=== PATIENT | female | born 1985 | race Caucasian/White ===

== ENCOUNTER 2017-07-09 10:50 | Inpatient (IN) | payer OTHER ==
[~2017-07-09] VITALS: Ht 152.4 cm; Wt 91.9 kg
[2017-07-09] MEDS ORDERED: SODIUM CHLORIDE 0.9% 1000ML 1,000 ML IV STA (11:09)
[2017-07-09] MEDS ORDERED: MoRPHine SULFATE 10 MG/ML CARP/VIAL IV STA (11:09)
[2017-07-09 11:32] LABS: BASO % 0.3 %; BASO ABS # 0.03 K/uL (0-0.2); EOS % 1.7 %; EOS ABS # 0.17 K/uL (0-0.5); HEMATOCRIT 40.9 % (37-47); HEMOGLOBIN 14.4 g/dL (12.0-16.0); IG# 0.05 K/uL (0.00-0.02); LYMPH % 18.3 %; LYMPH ABS # 1.86 K/uL (1.2-3.4); MEAN CELL VOLUME 88.5 fL (80-100); MEAN CORPUSCULAR HEMOGLOBIN 31.2 pg (25-34); MEAN CORPUSCULAR HGB CONC 35.2 g/dl (32-36); MEAN PLATELET VOLUME 9.6 fL (7.4-10.4); MONO % 6.4 %; MONO ABS # 0.65 K/uL (0.11-0.59); NEUT % 72.8 %; NEUT ABS # 7.41 K/uL (1.4-6.5); PLATELET COUNT 384 K/uL (130-400); RED CELL DISTRIBUTION WIDTH CV 13.6 % (11.5-14.5); WHITE BLOOD COUNT 10.17 K/uL (4.8-10.8)
[2017-07-09 11:51] LABS: ALBUMIN 3.9 gm/dl (3.4-5.0); CALCIUM 9.7 mg/dl (8.5-10.1); CREATININE 0.84 mg/dl (0.60-1.20); POTASSIUM 3.8 mmol/L (3.5-5.1)
[2017-07-09 11:54] LABS: TOTAL PROTEIN 9.2 gm/dl (6.4-8.2)
--- NOTE | 2017-07-09 12:42 | DIAGNOSTIC IMAGING REPORT ---
ULTRASOUND RIGHT UPPER QUADRANT ABDOMEN CLINICAL HISTORY: Right upper quadrant abdominal pain. COMPARISON STUDY: No priors. TECHNIQUE: Real-time, grayscale, and color flow sonography of the right upper quadrant of the abdomen was performed. Images are reviewed in the transverse and longitudinal planes. FINDINGS: Liver: The liver is normal in size and echotexture. There is no intrahepatic biliary ductal dilatation. The main portal vein is patent. Gallbladder: The gallbladder is contracted. Shadowing gallstones measure up to 1.1 cm. There is no gallbladder wall thickening or pericholecystic fluid. A sonographic Persaud's sign is reportedly absent. The common bile duct is dilated measuring up to 1.1 cm in diameter. A 9 mm shadowing calculus is identified within the common bile duct. Pancreas: Visualized portions of the pancreatic head and body are normal in appearance. The splenic vein is patent. Right kidney: Survey images of the right kidney demonstrate normal size and echotexture. There is no hydronephrosis. A 2.5 cm cyst is noted in the right upper pole. Ascites: None. IMPRESSION: 1. The gallbladder is contracted and contains shadowing gallstones. There is no sonographic evidence of acute cholecystitis. 2. There is dilatation of the common bile duct with evidence of choledocholithiasis. Follow-up with gastroenterology is recommended. 3. There is no intrahepatic biliary ductal dilatation identified. Electronically signed by: Manjit García M.D. 07/09/2017 12:41 PM Dictated Date/Time: 07/09/2017 12:37 PM
--- NOTE | 2017-07-09 13:17 | Gastrointestinal Consultation ---
Gastrointestinal Consultation Date of Consultation: Jul 09, 2017 Attending Physician: Sacha Consulting Physician: Matthew Reason for Consultation: elevated LFTs, CBD stone History of Present Illness Patient is a 31 year old female history of gallstones and RUQ abd pain x 1 month who presented to the ED for abdominal pain, nausea, vomiting. Pt was seen and evaluated, chart reviewed. Notes had acute on chronic RUQ pain last evening into this AM with nausea, vomiting. Called her surgeon who recommended ED. She was to have her GB out as an OP Wednesday. Recent labs were suggestive of passing gallstones. Currently, has RUQ abd pain, worse w/ palpation. No rebound or guarding. Nausea and vomiting. No coffee ground emesis, hematemesis. No black/ bloody stools. Had breakfast at 0800, cup of coffee, peanut butter toast and banana. Has been NPO since 0800. No fever, chills, CP, SOB TB 2.7 --> 1 --> 2.9 AST 78 --> 242 ALT 209 --> 354 ALKP 226 --> 427 RUQ US 07/09/17: The liver is normal in size and echotexture. There is no intrahepaticbiliary ductal dilatation. The main portal vein is patent. The gallbladder is contracted. Shadowing gallstones measure up to 1.1 cm. There is no gallbladder wall thickening or pericholecystic fluid. A sonographic Persaud's sign is reportedly absent. The common bile duct is dilated measuring up to 1.1 cm in diameter. A 9 mm shadowing calculus is identified within the common bile duct. RUQ US 07/05/17: CBD 11, Borderline hepatomegaly with questionable steatosis. Abnormal gallbladder, as above, including gallstones Past Medical/Surgical History abd pain, nausea, vomiting, RUQ pain, pruritus Past Medical History: obesity, gallstones Past Surgical History: none Social History Smoking Status: Never Smoker Allergies Coded Allergies: Amoxicillin (Verified Allergy, Unknown, unknown as child, 07/09/17) Review of Systems Constitutional: No fever, No chills, No weight loss, No fatigue Respiratory: No cough, No shortness of breath Cardiac: No chest pain, No edema Abdomen: + pain, + nausea, + vomiting, No diarrhea, No constipation, No GI bleeding Physical Exam Date Time Temp Pulse Resp B/P (MAP) Pulse Ox O2 Delivery O2 Flow Rate FiO2 07/09/17 12:55 98 18 165/110 98 Room Air 07/09/17 11:46 97 Room Air 07/09/17 11:42 102 20 152/112 96 Room Air 07/09/17 10:57 37.0 97 20 159/109 98 Room Air General Appearance: no apparent distress Eyes: PERRL ENT: hearing grossly normal Neck: supple, trachea midline Respiratory/Chest: lungs clear, normal breath sounds, no respiratory distress, no accessory muscle use Cardiovascular: regular rate, rhythm, no edema, no gallop, no JVD Abdomen: normal bowel sounds, soft, no organomegaly, no pulsatile mass, + tenderness (RUQ tenderness) Neurologic/Psych: alert, normal mood/affect, oriented x 3 Skin: warm/dry, no rash, + jaundice Laboratory Results Last 24 Hours Test 07/09/17 11:20 07/09/17 11:38 White Blood Count 10.17 K/uL Red Blood Count 4.62 M/uL Hemoglobin 14.4 g/dL Hematocrit 40.9 % Mean Corpuscular Volume 88.5 fL Mean Corpuscular Hemoglobin 31.2 pg Mean Corpuscular Hemoglobin Concent 35.2 g/dl Platelet Count 384 K/uL Mean Platelet Volume 9.6 fL Neutrophils (%) (Auto) 72.8 % Lymphocytes (%) (Auto) 18.3 % Monocytes (%) (Auto) 6.4 % Eosinophils (%) (Auto) 1.7 % Basophils (%) (Auto) 0.3 % Neutrophils # (Auto) 7.41 K/uL Lymphocytes # (Auto) 1.86 K/uL Monocytes # (Auto) 0.65 K/uL Eosinophils # (Auto) 0.17 K/uL Basophils # (Auto) 0.03 K/uL RDW Standard Deviation 44.0 fL RDW Coefficient of Variation 13.6 % Immature Granulocyte % (Auto) 0.5 % Immature Granulocyte # (Auto) 0.05 K/uL Sodium Level 136 mmol/L Potassium Level 3.8 mmol/L Chloride Level 103 mmol/L Carbon Dioxide Level 25 mmol/L Anion Gap 7.0 mmol/L Blood Urea Nitrogen 14 mg/dl Creatinine 0.84 mg/dl Est Creatinine Clear Calc Drug Dose 99.9 ml/min Estimated GFR () 108.9 Estimated GFR (Non- 93.9 BUN/Creatinine Ratio 16.9 Random Glucose 132 mg/dl Calcium Level 9.7 mg/dl Total Bilirubin 2.9 mg/dl Direct Bilirubin 2.2 mg/dl Aspartate Amino Transf (AST/SGOT) 242 U/L Alanine Aminotransferase (ALT/SGPT) 354 U/L Alkaline Phosphatase 427 U/L Total Protein 9.2 gm/dl Albumin 3.9 gm/dl Lipase 317 U/L Urine Color DK YELLOW Urine Appearance TURBID Urine pH 6.5 Urine Specific [place] 1.028 Urine Protein 1+ Urine Glucose (UA) NEG Urine Ketones TRACE Urine Occult Blood NEG Urine Nitrite POS Urine Bilirubin 2+ Urine Urobilinogen POS Urine Leukocyte Esterase LARGE Urine WBC (Auto) /hpf Urine RBC (Auto) /hpf Urine Hyaline Casts (Auto) /lpf Urine Epithelial Cells (Auto) /lpf Urine Bacteria (Auto) Urine RBC 0-4 /hpf Urine WBC 10-30 /hpf Urine Epithelial Cells >30 /lpf Urine Crystals Urine Calcium Oxalate Crystals PRESENT Urine Bacteria 1+ Urine Hyaline Casts 1-5 /lpf Urine Trichomonas PRESENT Urine Test NEG Impression Patient is a 31 year old female w/ gallstones plan for cholecystectomy in three days who presented with worsening RUQ pain, US w/ choledocholithiasis CBD 11, LFTs obstructive c/w choledocholithiasis. She is afebrile with stable vital signs without evidence of leukocytosis. Plan Strict NPO IV ABX for cholangitis prophylaxis Antiemetics PRN Analgesia PRN ERCP timing to be determined Cholecystectomy per general surgery GI to follow. Please call with any acute changes, questions or concerns. I performed a history and physical examination of the patient. I have discussed the patient's case, impression and plan with CUONG Lovell. Her note reflects my findings and plan. Presentation c/w choledocholithiasis. No signs of ascending cholangitis. Will need pre op ERCP. Will discuss timing with surgery. Malik Castro MD
[2017-07-09] MEDS ORDERED: MoRPHine SULFATE 4 MG/ML 1 ML CARP\\VIAL IV PRN (13:45)
[2017-07-09] MEDS ORDERED: ONDANSETRON INJ 2 MG/ML 2 ML VIAL IV PRN ×2 (13:45)
--- NOTE | 2017-07-09 14:07 | History and Physical ---
History & Physical Date & Time of Service: Jul 09, 2017 at 13:43 Chief Complaint: Gallbladder Attack,Gallstones,Pain,Vomiting Primary Care Physician: Ria Mehta History of Present Illness Source: patient, clinic records, hospital records 31-year-old female presents emergency room with worsening right upper quadrant pain that was associated with vomiting, chills, and nausea in the last 24 hours. She reports a history of 2 weeks of abdominal pain that was in the right upper quadrant area. She was worked up as outpatient and ultimately seen by a general surgeon for this and had a planned cholecystectomy for this coming Wednesday (3 days from now). Yesterday she reports eating potato chips and subsequently having pain around lunchtime which resolved spontaneously. She then had spaghetti last night for dinner and developed the same right upper quadrant pain with vomiting within a half an hour. She was able to go to sleep but then woke up went to work, had a peanut butter sandwich with ice coffee and threw up within 30 minutes. This was when she came to the ER. She reports after throwing up she was able to drink water and keep that down. She reports a history of jaundice but no jaundice in the last 24 hours. She otherwise denies any urinary tract symptoms including no dysuria or urgency. She denies any fevers, chest pain, shortness of breath, diarrhea, change in bowel movements or blood per rectum. She denies any cough or recent cold symptoms. She describes the pain is across the top of her abdomen with majority of the pain in the right upper quadrant area. This pain provokes her to have some trouble breathing when it is at its worse in addition to some chest tightness which resolves with resolution of the pain. Past Medical/Surgical History Medical Problems: (1) Gestational diabetes Status: Resolved Family History FH: HTN (hypertension) MOTHER Type 2 diabetes mellitus MOTHER Social History Smoking Status: Never Smoker Smokeless Tobacco Use: No Alcohol Use: socially Drug Use: none Housing status: lives with family Occupational Status: employed Immunizations History of Influenza Vaccine: Unknown History of Tetanus Vaccine?: Yes Tetanus Immunization Date: Dec 18, 2005 History of Pneumococcal: No History of Hepatitis B Vaccine: No Allergies Coded Allergies: Amoxicillin (Verified Allergy, Unknown, unknown as child, 07/09/17) Review of Systems At least 10 systems were reviewed and negative except as indicated in HPI. Physical Exam Vital Signs Date Time Temp Pulse Resp B/P (MAP) Pulse Ox O2 Delivery O2 Flow Rate FiO2 07/09/17 12:55 98 18 165/110 98 Room Air 07/09/17 11:46 97 Room Air 07/09/17 11:42 102 20 152/112 96 Room Air 07/09/17 10:57 37.0 97 20 159/109 98 Room Air General Appearance: no apparent distress, + obese Head: normocephalic, atraumatic Eyes: normal inspection, PERRL, sclerae normal ENT: hearing grossly normal, pharynx normal Neck: supple, no adenopathy, trachea midline Respiratory/Chest: lungs clear, normal breath sounds, no respiratory distress, no accessory muscle use Cardiovascular: regular rate, rhythm, no edema, no gallop, no JVD, no murmur, normal peripheral pulses Abdomen/GI: normal bowel sounds, soft, + tenderness (Right upper quadrant/ epigastric), + pertinent finding (No rebound, no CVA tenderness) Back: normal inspection, no CVA tenderness Extremities/Musculoskelatal: normal inspection, no pedal edema, normal range of motion Neurologic/Psych: senior investment analyst II-XII nml as tested, no motor/sensory deficits, alert, normal mood/affect, oriented x 3 Skin: normal color, warm/dry, no rash Diagnostics Laboratory Results 07/09/17 11:20 Red Blood Count 4.62, Mean Corpuscular Volume 88.5, Mean Corpuscular Hemoglobin 31.2, Mean Corpuscular Hemoglobin Concent 35.2, Mean Platelet Volume 9.6, Neutrophils (%) (Auto) 72.8, Lymphocytes (%) (Auto) 18.3, Monocytes (%) (Auto) 6.4, Eosinophils (%) (Auto) 1.7, Basophils (%) (Auto) 0.3, Neutrophils # (Auto) 7.41, Lymphocytes # (Auto) 1.86, Monocytes # (Auto) 0.65, Eosinophils # (Auto) 0.17, Basophils # (Auto) 0.03 07/09/17 11:20 Test 07/09/17 11:20 07/09/17 11:38 White Blood Count 10.17 K/uL (4.8-10.8) Red Blood Count 4.62 M/uL (4.2-5.4) Hemoglobin 14.4 g/dL (12.0-16.0) Hematocrit 40.9 % (37-47) Mean Corpuscular Volume 88.5 fL (80-100) Mean Corpuscular Hemoglobin 31.2 pg (25-34) Mean Corpuscular Hemoglobin Concent 35.2 g/dl (32-36) Platelet Count 384 K/uL (130-400) Mean Platelet Volume 9.6 fL (7.4-10.4) Neutrophils (%) (Auto) 72.8 % Lymphocytes (%) (Auto) 18.3 % Monocytes (%) (Auto) 6.4 % Eosinophils (%) (Auto) 1.7 % Basophils (%) (Auto) 0.3 % Neutrophils # (Auto) 7.41 K/uL (1.4-6.5) Lymphocytes # (Auto) 1.86 K/uL (1.2-3.4) Monocytes # (Auto) 0.65 K/uL (0.11-0.59) Eosinophils # (Auto) 0.17 K/uL (0-0.5) Basophils # (Auto) 0.03 K/uL (0-0.2) RDW Standard Deviation 44.0 fL (36.4-46.3) RDW Coefficient of Variation 13.6 % (11.5-14.5) Immature Granulocyte % (Auto) 0.5 % Immature Granulocyte # (Auto) 0.05 K/uL (0.00-0.02) Anion Gap 7.0 mmol/L (3-11) Est Creatinine Clear Calc Drug Dose 99.9 ml/min Estimated GFR () 108.9 Estimated GFR (Non- 93.9 BUN/Creatinine Ratio 16.9 (10-20) Calcium Level 9.7 mg/dl (8.5-10.1) Total Bilirubin 2.9 mg/dl (0.2-1) Direct Bilirubin 2.2 mg/dl (0-0.2) Aspartate Amino Transf (AST/SGOT) 242 U/L (15-37) Alanine Aminotransferase (ALT/SGPT) 354 U/L (12-78) Alkaline Phosphatase 427 U/L (45-117) Total Protein 9.2 gm/dl (6.4-8.2) Albumin 3.9 gm/dl (3.4-5.0) Lipase 317 U/L (73-393) Urine Color DK YELLOW Urine Appearance TURBID (CLEAR) Urine pH 6.5 (4.5-7.5) Urine Specific [place] 1.028 (1.000-1.030) Urine Protein 1+ (NEG) Urine Glucose (UA) NEG (NEG) Urine Ketones TRACE (NEG) Urine Occult Blood NEG (NEG) Urine Nitrite POS (NEG) Urine Bilirubin 2+ (NEG) Urine Urobilinogen POS (NEG) Urine Leukocyte Esterase LARGE (NEG) Urine WBC (Auto) /hpf (0-5) Urine RBC (Auto) /hpf (0-4) Urine Hyaline Casts (Auto) /lpf (0-5) Urine Epithelial Cells (Auto) /lpf (0-5) Urine Bacteria (Auto) (NEG) Urine RBC 0-4 /hpf (0-4) Urine WBC 10-30 /hpf (0-5) Urine Epithelial Cells >30 /lpf (0-5) Urine Crystals (NONE PRSENT) Urine Calcium Oxalate Crystals PRESENT (NONE PRSENT) Urine Bacteria 1+ (NEG) Urine Hyaline Casts 1-5 /lpf (0-5) Urine Trichomonas PRESENT (NONE PRSENT) Urine Test NEG (NEG) Date/Time Source Procedure Growth Status 07/09/17 11:38 Urine , Clean Catch Urine Culture Pending Received Results Past 24 Hours Test 07/09/17 11:20 07/09/17 11:38 Range/Units White Blood Count 10.17 4.8-10.8 K/uL Red Blood Count 4.62 4.2-5.4 M/uL Hemoglobin 14.4 12.0-16.0 g/dL Hematocrit 40.9 37-47 % Mean Corpuscular Volume 88.5 80-100 fL Mean Corpuscular Hemoglobin 31.2 25-34 pg Mean Corpuscular Hemoglobin Concent 35.2 32-36 g/dl Platelet Count 384 130-400 K/uL Mean Platelet Volume 9.6 7.4-10.4 fL Neutrophils (%) (Auto) 72.8 % Lymphocytes (%) (Auto) 18.3 % Monocytes (%) (Auto) 6.4 % Eosinophils (%) (Auto) 1.7 % Basophils (%) (Auto) 0.3 % Neutrophils # (Auto) 7.41 1.4-6.5 K/uL Lymphocytes # (Auto) 1.86 1.2-3.4 K/uL Monocytes # (Auto) 0.65 0.11-0.59 K/uL Eosinophils # (Auto) 0.17 0-0.5 K/uL Basophils # (Auto) 0.03 0-0.2 K/uL RDW Standard Deviation 44.0 36.4-46.3 fL RDW Coefficient of Variation 13.6 11.5-14.5 % Immature Granulocyte % (Auto) 0.5 % Immature Granulocyte # (Auto) 0.05 0.00-0.02 K/uL Sodium Level 136 136-145 mmol/L Potassium Level 3.8 3.5-5.1 mmol/L Chloride Level 103 98-107 mmol/L Carbon Dioxide Level 25 21-32 mmol/L Anion Gap 7.0 3-11 mmol/L Blood Urea Nitrogen 14 7-18 mg/dl Creatinine 0.84 0.60-1.20 mg/dl Est Creatinine Clear Calc Drug Dose 99.9 ml/min Estimated GFR () 108.9 Estimated GFR (Non- 93.9 BUN/Creatinine Ratio 16.9 10-20 Random Glucose 132 70-99 mg/dl Calcium Level 9.7 8.5-10.1 mg/dl Total Bilirubin 2.9 0.2-1 mg/dl Direct Bilirubin 2.2 0-0.2 mg/dl Aspartate Amino Transf (AST/SGOT) 242 15-37 U/L Alanine Aminotransferase (ALT/SGPT) 354 12-78 U/L Alkaline Phosphatase 427 45-117 U/L Total Protein 9.2 6.4-8.2 gm/dl Albumin 3.9 3.4-5.0 gm/dl Lipase 317 73-393 U/L Urine Color DK YELLOW Urine Appearance TURBID CLEAR Urine pH 6.5 4.5-7.5 Urine Specific [place] 1.028 1.000-1.030 Urine Protein 1+ NEG Urine Glucose (UA) NEG NEG Urine Ketones TRACE NEG Urine Occult Blood NEG NEG Urine Nitrite POS NEG Urine Bilirubin 2+ NEG Urine Urobilinogen POS NEG Urine Leukocyte Esterase LARGE NEG Urine WBC (Auto) 0-5 /hpf Urine RBC (Auto) 0-4 /hpf Urine Hyaline Casts (Auto) 0-5 /lpf Urine Epithelial Cells (Auto) 0-5 /lpf Urine Bacteria (Auto) NEG Urine RBC 0-4 0-4 /hpf Urine WBC 10-30 0-5 /hpf Urine Epithelial Cells >30 0-5 /lpf Urine Crystals NONE PRSENT Urine Calcium Oxalate Crystals PRESENT NONE PRSENT Urine Bacteria 1+ NEG Urine Hyaline Casts 1-5 0-5 /lpf Urine Trichomonas PRESENT NONE PRSENT Urine Test NEG NEG Microbiology Results 07/09/17 Urine Culture, Received Pending Diagnostic Radiology ULTRASOUND RIGHT UPPER QUADRANT ABDOMEN CLINICAL HISTORY: Right upper quadrant abdominal pain. COMPARISON STUDY: No priors. TECHNIQUE: Real-time, grayscale, and color flow sonography of the right upper quadrant of the abdomen was performed. Images are reviewed in the transverse and longitudinal planes. FINDINGS: Liver: The liver is normal in size and echotexture. There is no intrahepatic biliary ductal dilatation. The main portal vein is patent. Gallbladder: The gallbladder is contracted. Shadowing gallstones measure up to 1.1 cm. There is no gallbladder wall thickening or pericholecystic fluid. A sonographic Persaud's sign is reportedly absent. The common bile duct is dilated measuring up to 1.1 cm in diameter. A 9 mm shadowing calculus is identified within the common bile duct. Pancreas: Visualized portions of the pancreatic head and body are normal in appearance. The splenic vein is patent. Right kidney: Survey images of the right kidney demonstrate normal size and echotexture. There is no hydronephrosis. A 2.5 cm cyst is noted in the right upper pole. Ascites: None. IMPRESSION: 1. The gallbladder is contracted and contains shadowing gallstones. There is no sonographic evidence of acute cholecystitis. 2. There is dilatation of the common bile duct with evidence of choledocholithiasis. Follow-up with gastroenterology is recommended. 3. There is no intrahepatic biliary ductal dilatation identified. Impression Assessment and Plan 31-year-old female presents with biliary colic 1. Biliary colic-secondary to choledocholithiasis. Ultrasound reveals presence of cholelithiasis but no evidence of cholecystitis. Patient is not septic or appearing infected at this time. GI was consulted as tones are present in the bile duct and general surgery was also consulted. Will keep patient in n.p.o. on IV fluids for supportive care continue IV pain and antiemetic control and await plan from the proceduralists. 2. Elevated LFTs-likely secondary to #1 DVT prophylaxis-SCDs Full code Disposition-[facility] [facility] Resuscitation Status VTE Prophylaxis Will order VTE Prophylaxis: Yes
[2017-07-09] MEDS ORDERED: RANI150T3 PO (14:10)
[2017-07-09 14:50] VITALS: BP 149/96; PULSE 71; TEMP 36.9; O2SAT 98
[2017-07-09 15:00] VITALS: BP 149/96; PULSE 71; TEMP 36.9; Ht 152.4 cm; Wt 91.9 kg
--- NOTE | 2017-07-09 15:12 | Medical Consult ---
Consultation Date of Consultation: Jul 09, 2017. Attending Physician: Ilir Mancera M.D. History of Present Illness 31 y/o female with intermittent upper abdominal pain over the past [address] Lawrence on Wednesday who scheduled her for lap richard with [facility] at [facility] on Wednesday 07/12 at 10:30. Her outpatient U/S had shown cholelithiasis with 11 mm CBD, no evidence of choledocholithiasis at that time. Last evening she pain having more pain and increasing N/V today. She came to the ED today for evaluation. 9mm CBD stone now seen on U/S, being admitted for ERCP. Past Medical/Surgical History Medical Problems: (1) Gestational diabetes Status: Resolved Surgical history: none Family History FH: HTN (hypertension) MOTHER Type 2 diabetes mellitus MOTHER Social History Smoking Status: Never Smoker Smokeless Tobacco Use: No Alcohol Use: socially Drug Use: none Occupation Status: employed Allergies Coded Allergies: Amoxicillin (Verified Allergy, Unknown, unknown as child, 07/09/17) Current Inpatient Medications Current Inpatient Medications Medications (Trade) Dose Ordered Sig/Mateo Route Start Time Stop Time Status Last Admin Dose Admin Ondansetron HCl (Zofran Inj) 4 mg Q6H PRN IV 07/09/17 13:45 08/08/17 13:44 Potassium Chloride/Dextrose/ Sod Cl 1,000 ml @ 100 mls/hr Q10H IV 07/09/17 15:00 08/08/17 14:59 Morphine Sulfate (MoRPHine SULFATE INJ) 4 mg Q4H PRN IV 07/09/17 13:45 07/23/17 13:44 Review of Systems Constitutional: + chills, No fever Abdomen: + pain (epigatric radiating to RUQ), + nausea, + vomiting Physical Exam Date Time Temp Pulse Resp B/P (MAP) Pulse Ox O2 Delivery O2 Flow Rate FiO2 07/09/17 14:02 88 20 145/113 99 07/09/17 12:55 98 18 165/110 98 Room Air 07/09/17 11:46 97 Room Air 07/09/17 11:42 102 20 152/112 96 Room Air 07/09/17 10:57 37.0 97 20 159/109 98 Room Air General Appearance: WD/WN, no apparent distress Respiratory/Chest: lungs clear, normal breath sounds Cardiovascular: regular rate, rhythm, no edema Abdomen/GI: non tender (recently medicated), soft Neurologic/Psych: normal mood/affect, oriented x 3 Laboratory Results Last 24 Hours Test 07/09/17 11:20 07/09/17 11:38 White Blood Count 10.17 K/uL Red Blood Count 4.62 M/uL Hemoglobin 14.4 g/dL Hematocrit 40.9 % Mean Corpuscular Volume 88.5 fL Mean Corpuscular Hemoglobin 31.2 pg Mean Corpuscular Hemoglobin Concent 35.2 g/dl Platelet Count 384 K/uL Mean Platelet Volume 9.6 fL Neutrophils (%) (Auto) 72.8 % Lymphocytes (%) (Auto) 18.3 % Monocytes (%) (Auto) 6.4 % Eosinophils (%) (Auto) 1.7 % Basophils (%) (Auto) 0.3 % Neutrophils # (Auto) 7.41 K/uL Lymphocytes # (Auto) 1.86 K/uL Monocytes # (Auto) 0.65 K/uL Eosinophils # (Auto) 0.17 K/uL Basophils # (Auto) 0.03 K/uL RDW Standard Deviation 44.0 fL RDW Coefficient of Variation 13.6 % Immature Granulocyte % (Auto) 0.5 % Immature Granulocyte # (Auto) 0.05 K/uL Sodium Level 136 mmol/L Potassium Level 3.8 mmol/L Chloride Level 103 mmol/L Carbon Dioxide Level 25 mmol/L Anion Gap 7.0 mmol/L Blood Urea Nitrogen 14 mg/dl Creatinine 0.84 mg/dl Est Creatinine Clear Calc Drug Dose 99.9 ml/min Estimated GFR () 108.9 Estimated GFR (Non- 93.9 BUN/Creatinine Ratio 16.9 Random Glucose 132 mg/dl Calcium Level 9.7 mg/dl Total Bilirubin 2.9 mg/dl Direct Bilirubin 2.2 mg/dl Aspartate Amino Transf (AST/SGOT) 242 U/L Alanine Aminotransferase (ALT/SGPT) 354 U/L Alkaline Phosphatase 427 U/L Total Protein 9.2 gm/dl Albumin 3.9 gm/dl Lipase 317 U/L Urine Color DK YELLOW Urine Appearance TURBID Urine pH 6.5 Urine Specific [place] 1.028 Urine Protein 1+ Urine Glucose (UA) NEG Urine Ketones TRACE Urine Occult Blood NEG Urine Nitrite POS Urine Bilirubin 2+ Urine Urobilinogen POS Urine Leukocyte Esterase LARGE Urine WBC (Auto) /hpf Urine RBC (Auto) /hpf Urine Hyaline Casts (Auto) /lpf Urine Epithelial Cells (Auto) /lpf Urine Bacteria (Auto) Urine RBC 0-4 /hpf Urine WBC 10-30 /hpf Urine Epithelial Cells >30 /lpf Urine Crystals Urine Calcium Oxalate Crystals PRESENT Urine Bacteria 1+ Urine Hyaline Casts 1-5 /lpf Urine Trichomonas PRESENT Urine Test NEG ULTRASOUND RIGHT UPPER QUADRANT ABDOMEN CLINICAL HISTORY: Right upper quadrant abdominal pain. COMPARISON STUDY: No priors. TECHNIQUE: Real-time, grayscale, and color flow sonography of the right upper quadrant of the abdomen was performed. Images are reviewed in the transverse and longitudinal planes. FINDINGS: Liver: The liver is normal in size and echotexture. There is no intrahepatic biliary ductal dilatation. The main portal vein is patent. Gallbladder: The gallbladder is contracted. Shadowing gallstones measure up to 1.1 cm. There is no gallbladder wall thickening or pericholecystic fluid. A sonographic Persaud's sign is reportedly absent. The common bile duct is dilated measuring up to 1.1 cm in diameter. A 9 mm shadowing calculus is identified within the common bile duct. Pancreas: Visualized portions of the pancreatic head and body are normal in appearance. The splenic vein is patent. Right kidney: Survey images of the right kidney demonstrate normal size and echotexture. There is no hydronephrosis. A 2.5 cm cyst is noted in the right upper pole. Ascites: None. IMPRESSION: 1. The gallbladder is contracted and contains shadowing gallstones. There is no sonographic evidence of acute cholecystitis. 2. There is dilatation of the common bile duct with evidence of choledocholithiasis. Follow-up with gastroenterology is recommended. 3. There is no intrahepatic biliary ductal dilatation identified. Electronically signed by: Manjit García M.D. 07/09/2017 12:41 PM Dictated Date/Time: 07/09/2017 12:37 PM Assessment & Plan cholelithiasis, choledocholithiasis ERCP is being planned possibly today or tomorrow. No evidence of acute cholecystitis. I discussed with Dr. Lawrence and Dr. Bustos. Depending on timing of ERCP, she can have cholecystectomy during admission this by Dr. Bustos or follow-up on Wednesday morning for outpatient cholecystectomy with Dr. Lawrence as planned. I discussed these options with her as well.
[2017-07-09] MEDS: D5NSS + 20MEQ KCL 1,000 ML IV SCH (16:01)
--- NOTE | 2017-07-09 16:29 | EMERGENCY ROOM VISIT NOTE ---
History Report prepared by Wilson: Cintia Castillo Under the Supervision of: Dr. David Goncalves D.O. First contact with patient: 10:59 Chief Complaint: ABDOMINAL PAIN Stated Complaint: GALLBLADDER ATTACK,GALLSTONES,PAIN,VOMITING History of Present Illness The patient is a 31 year old female who presents to the Emergency Room with complaints of worsening sharp right upper quadrant pain beginning a month ago. The patient rates her pain as a 9/10. Pain is constant. No remitting factors. Her pain is modified by leaning forward. She reports she had ultrasound on Wednesday which showed a gall stone lodged in bowel duct. The patient is scheduled to have surgery by Dr. Lawrence on Wednesday. The patient reports vomiting and chills. Pt denies headache, change in vision, fevers, chest pain, shortness of breath, diarrhea, pain with urination, and melena. The patient's last bowel movement was Wednesday. Source of History: patient Onset: a month ago Position: abdomen (RUQ) Symptom Intensity: 9/10 Quality: sharp Timing: worsening Associated Symptoms: + chills, + vomiting, + abdominal pain, No fevers, No headache, No chest pain, No SOB, No nausea, No diarrhea, No urinary symptoms Review of Systems See HPI for pertinent positives & negatives. A total of 10 systems reviewed and were otherwise negative. Past Medical & Surgical Medical Problems: (1) Biliary colic (2) Gestational diabetes Family History FH: HTN (hypertension) MOTHER Type 2 diabetes mellitus MOTHER Social History Smoking Status: Never Smoker Marital Status: single Current/Historical Medications Scheduled Ranitidine Hcl (Zantac), 150 MG PO BID Allergies Coded Allergies: Amoxicillin (Verified Allergy, Unknown, unknown as child, 07/09/17) Physical Exam Vital Signs Date Time Temp Pulse Resp B/P (MAP) Pulse Ox O2 Delivery O2 Flow Rate FiO2 07/09/17 12:55 98 18 165/110 98 Room Air 07/09/17 11:46 97 Room Air 07/09/17 11:42 102 20 152/112 96 Room Air 07/09/17 10:57 37.0 97 20 159/109 98 Room Air Physical Exam GENERAL: Sitting up in bed, alert, disheveled appearing, tearful, holding right upper quadrant, well nourished, no distress, non-toxic EYE EXAM: normal conjunctiva. OROPHARYNX: no exudate, no erythema, lips, buccal mucosa, and tongue normal and mucous membranes are moist NECK: supple, no nuchal rigidity, no adenopathy, non-tender LUNGS: Clear to auscultation. Normal chest wall mechanics HEART: no murmurs, S1 normal and S2 normal ABDOMEN: Tenderness to right upper quadrant. abdomen soft, normo-active bowel sounds, no masses, no rebound or guarding. BACK: Back is symmetrical on inspection and there is no deformity, no midline tenderness, no CVA tenderness. SKIN: no rashes and no bruising UPPER EXTREMITIES: upper extremities are grossly normal. LOWER EXTREMITIES: No pitting edema. NEURO EXAM: Normal sensorium, cranial nerves II-XII grossly intact, normal speech, no gross weakness of arms, no gross weakness of legs. Medical Decision & Procedures ER Provider Diagnostic Interpretation: Radiology results as stated below per my review and the radiologist's interpretation: ULTRASOUND RIGHT UPPER QUADRANT ABDOMEN CLINICAL HISTORY: Right upper quadrant abdominal pain. COMPARISON STUDY: No priors. TECHNIQUE: Real-time, grayscale, and color flow sonography of the right upper quadrant of the abdomen was performed. Images are reviewed in the transverse and longitudinal planes. FINDINGS: Liver: The liver is normal in size and echotexture. There is no intrahepatic biliary ductal dilatation. The main portal vein is patent. Gallbladder: The gallbladder is contracted. Shadowing gallstones measure up to 1.1 cm. There is no gallbladder wall thickening or pericholecystic fluid. A sonographic Persaud's sign is reportedly absent. The common bile duct is dilated measuring up to 1.1 cm in diameter. A 9 mm shadowing calculus is identified within the common bile duct. Pancreas: Visualized portions of the pancreatic head and body are normal in appearance. The splenic vein is patent. Right kidney: Survey images of the right kidney demonstrate normal size and echotexture. There is no hydronephrosis. A 2.5 cm cyst is noted in the right upper pole. Ascites: None. IMPRESSION: 1. The gallbladder is contracted and contains shadowing gallstones. There is no sonographic evidence of acute cholecystitis. 2. There is dilatation of the common bile duct with evidence of choledocholithiasis. Follow-up with gastroenterology is recommended. 3. There is no intrahepatic biliary ductal dilatation identified. Electronically signed by: Manjit García M.D. Laboratory Results 07/09/17 11:20 Red Blood Count 4.62, Mean Corpuscular Volume 88.5, Mean Corpuscular Hemoglobin 31.2, Mean Corpuscular Hemoglobin Concent 35.2, Mean Platelet Volume 9.6, Neutrophils (%) (Auto) 72.8, Lymphocytes (%) (Auto) 18.3, Monocytes (%) (Auto) 6.4, Eosinophils (%) (Auto) 1.7, Basophils (%) (Auto) 0.3, Neutrophils # (Auto) 7.41, Lymphocytes # (Auto) 1.86, Monocytes # (Auto) 0.65, Eosinophils # (Auto) 0.17, Basophils # (Auto) 0.03 07/09/17 11:20 Test 07/09/17 11:20 07/09/17 11:38 White Blood Count 10.17 K/uL (4.8-10.8) Red Blood Count 4.62 M/uL (4.2-5.4) Hemoglobin 14.4 g/dL (12.0-16.0) Hematocrit 40.9 % (37-47) Mean Corpuscular Volume 88.5 fL (80-100) Mean Corpuscular Hemoglobin 31.2 pg (25-34) Mean Corpuscular Hemoglobin Concent 35.2 g/dl (32-36) Platelet Count 384 K/uL (130-400) Mean Platelet Volume 9.6 fL (7.4-10.4) Neutrophils (%) (Auto) 72.8 % Lymphocytes (%) (Auto) 18.3 % Monocytes (%) (Auto) 6.4 % Eosinophils (%) (Auto) 1.7 % Basophils (%) (Auto) 0.3 % Neutrophils # (Auto) 7.41 K/uL (1.4-6.5) Lymphocytes # (Auto) 1.86 K/uL (1.2-3.4) Monocytes # (Auto) 0.65 K/uL (0.11-0.59) Eosinophils # (Auto) 0.17 K/uL (0-0.5) Basophils # (Auto) 0.03 K/uL (0-0.2) RDW Standard Deviation 44.0 fL (36.4-46.3) RDW Coefficient of Variation 13.6 % (11.5-14.5) Immature Granulocyte % (Auto) 0.5 % Immature Granulocyte # (Auto) 0.05 K/uL (0.00-0.02) Anion Gap 7.0 mmol/L (3-11) Est Creatinine Clear Calc Drug Dose 99.9 ml/min Estimated GFR () 108.9 Estimated GFR (Non- 93.9 BUN/Creatinine Ratio 16.9 (10-20) Calcium Level 9.7 mg/dl (8.5-10.1) Total Bilirubin 2.9 mg/dl (0.2-1) Direct Bilirubin 2.2 mg/dl (0-0.2) Aspartate Amino Transf (AST/SGOT) 242 U/L (15-37) Alanine Aminotransferase (ALT/SGPT) 354 U/L (12-78) Alkaline Phosphatase 427 U/L (45-117) Total Protein 9.2 gm/dl (6.4-8.2) Albumin 3.9 gm/dl (3.4-5.0) Lipase 317 U/L (73-393) Urine Color DK YELLOW Urine Appearance TURBID (CLEAR) Urine pH 6.5 (4.5-7.5) Urine Specific [place] 1.028 (1.000-1.030) Urine Protein 1+ (NEG) Urine Glucose (UA) NEG (NEG) Urine Ketones TRACE (NEG) Urine Occult Blood NEG (NEG) Urine Nitrite POS (NEG) Urine Bilirubin 2+ (NEG) Urine Urobilinogen POS (NEG) Urine Leukocyte Esterase LARGE (NEG) Urine WBC (Auto) /hpf (0-5) Urine RBC (Auto) /hpf (0-4) Urine Hyaline Casts (Auto) /lpf (0-5) Urine Epithelial Cells (Auto) /lpf (0-5) Urine Bacteria (Auto) (NEG) Urine RBC 0-4 /hpf (0-4) Urine WBC 10-30 /hpf (0-5) Urine Epithelial Cells >30 /lpf (0-5) Urine Crystals (NONE PRSENT) Urine Calcium Oxalate Crystals PRESENT (NONE PRSENT) Urine Bacteria 1+ (NEG) Urine Hyaline Casts 1-5 /lpf (0-5) Urine Trichomonas PRESENT (NONE PRSENT) Urine Test NEG (NEG) Laboratory results per my review. Medications Administered Medications (Trade) Dose Ordered Sig/Mateo Route Start Time Stop Time Status Last Admin Dose Admin Sodium Chloride 1,000 ml @ 999 mls/hr Q1H1M STAT IV 07/09/17 11:09 07/09/17 12:09 DC 07/09/17 11:43 999 MLS/HR Morphine Sulfate (MoRPHine SULFATE INJ) 6 mg NOW STAT IV 07/09/17 11:09 07/09/17 11:11 DC 07/09/17 11:44 6 MG ED Course ED COURSE: Vital signs were reviewed and showed hypertensive and tachycardic The patients medical record was reviewed The above diagnostic studies were performed and reviewed. ED treatments and interventions as stated above. 1104: The patient was evaluated in room C6. A complete history and physical examination was performed. 1109: Ordered Morphine Sulfate 6 mg IV, Sodium Chloride 1000 ml @ 999 mls/hr IV. 1248: I reviewed the patient's case with Sussy HUTCHINS- Gastroenterology. She will come see the patient. 1248: [facility] She recommended talking to general surgery and then she will evaluate the patient for further management. 1302: I reviewed the patient's case with Gregg Daly General Surgery. 1305: Upon reevaluation, the patient is resting comfortably.I discussed my findings with the patient and she understands and agrees with the treatment plan. Based on the patients age, coexisting illnesses, exam and lab findings the decision to treat as an inpatient was made. The patient remained stable while under my care. The patient will be evaluated for further management. Medical Decision Differential diagnoses includes but is not limited to gastritis, peptic ulcer disease, GERD, gallbladder disease, pancreatitis, small bowel obstruction, acute coronary syndrome, pericarditis, ischemic bowel, irritable bowel disease, irritable bowel syndrome, appendicitis, diverticulitis, malignancy, hernia, urinary tract infection, torsion, /ectopic (if female), perforation, trauma, infectious. Patient is a 31-year-old female who presents to ER for right upper quadrant abdominal pain. Labs were obtained and CBC was unremarkable. BMP was unremarkable as well. Bilirubin was elevated at 3 with the transaminitis of the 300s. Ultrasound suggest choledocholithiasis without signs of cholecystitis. Patient was given IV fluids and narcotics. She felt significant better. was negative. Discuss with GI, general surgery and internal medicine. Patient will be admitted to internal medicine for choledocholithiasis. Medication Reconcilliation Current Medication List: was personally reviewed by me Blood Pressure Screening Patient's blood pressure: Elevated blood pressure Blood pressure disposition: Elevated BP felt to be situational Consults Time Called: 1240 Consulting Physician: Sussy [facility] Returned Call: 1248 I reviewed the patient's case with Sussy [facility]. She will come see the patient. Additional Consults: Time Called: 1255 Consulted Physician: Federica Sofia Returned Call: [phone] Additional Comments: I reviewed the patient's case with Federica Sofia. She recommended talking to general surgery and then she will evaluate the patient for further management. Time Called: 1253 Consulted Physician: Gregg Daly General Surgery Returned Call: 1300 Additional Comments: I reviewed the patient's case with Gregg Daly General Surgery. Impression Primary Impression: Choledocholithiasis Scribe Attestation The scribe's documentation has been prepared under my direction and personally reviewed by me in its entirety. I confirm that the note above accurately reflects all work, treatment, procedures, and medical decision making performed by me. Departure Information Dispostion Being Evaluated By Hospitalist Ria Yousif (PCP) Patient Instructions My [facility]
[2017-07-09 22:53] VITALS: BP 139/87; PULSE 89; TEMP 37.1; O2SAT 97
[2017-07-10] MEDS: D5NSS + 20MEQ KCL 1,000 ML IV SCH ×2 (00:31→10:25)
[2017-07-10 05:51] LABS: BASO % 0.4 %; BASO ABS # 0.03 K/uL (0-0.2); EOS % 5.1 %; EOS ABS # 0.42 K/uL (0-0.5); HEMATOCRIT 36.1 % (37-47); HEMOGLOBIN 12.3 g/dL (12.0-16.0); IG# 0.03 K/uL (0.00-0.02); LYMPH % 29.4 %; LYMPH ABS # 2.42 K/uL (1.2-3.4); MEAN CORPUSCULAR HEMOGLOBIN 30.7 pg (25-34); MEAN CORPUSCULAR HGB CONC 34.1 g/dl (32-36); MEAN PLATELET VOLUME 10.2 fL (7.4-10.4); MONO % 6.3 %; MONO ABS # 0.52 K/uL (0.11-0.59); NEUT % 58.4 %; NEUT ABS # 4.81 K/uL (1.4-6.5); PLATELET COUNT 347 K/uL (130-400); RED CELL DISTRIBUTION WIDTH CV 13.4 % (11.5-14.5); RED CELL DISTRIBUTION WIDTH SD 44.3 fL (36.4-46.3); WHITE BLOOD COUNT 8.23 K/uL (4.8-10.8)
[2017-07-10 06:25] LABS: ALBUMIN 2.9 gm/dl (3.4-5.0); CALCIUM 8.6 mg/dl (8.5-10.1); CREATININE 0.66 mg/dl (0.60-1.20); POTASSIUM 3.9 mmol/L (3.5-5.1)
[2017-07-10 06:29] LABS: TOTAL PROTEIN 7.8 gm/dl (6.4-8.2)
[2017-07-10 07:40] VITALS: O2SAT 97
[2017-07-10 08:29] VITALS: BP 128/76; PULSE 86; TEMP 37.3; O2SAT 95
--- NOTE | 2017-07-10 08:36 | Surgery Progress Note ---
Surgery Progress Note Date of Service Jul 10, 2017. Subjective + feeling well, + pain controlled, No nausea, No vomiting Objective Vital Signs: Date Time Temp Pulse Resp B/P (MAP) Pulse Ox O2 Delivery O2 Flow Rate FiO2 07/10/17 08:29 37.3 86 18 128/76 (93) 95 Room Air 07/10/17 07:40 97 Room Air 07/10/17 00:00 Room Air 07/09/17 22:53 37.1 89 16 139/87 (104) 97 Room Air 07/09/17 15:00 36.9 71 18 149/96 Room Air 07/09/17 14:50 36.9 71 18 149/96 (113) 98 Room Air 07/09/17 14:02 88 20 145/113 99 07/09/17 12:55 98 18 165/110 98 Room Air 07/09/17 11:46 97 Room Air 07/09/17 11:42 102 20 152/112 96 Room Air 07/09/17 10:57 37.0 97 20 159/109 98 Room Air General Appearance: WD/WN, no apparent distress Abdomen: non tender, non distended, soft Laboratory Results: Results Past 24 Hours Test 07/09/17 11:20 07/09/17 11:38 07/10/17 05:16 Range/Units White Blood Count 10.17 8.23 4.8-10.8 K/uL Red Blood Count 4.62 4.01 4.2-5.4 M/uL Hemoglobin 14.4 12.3 12.0-16.0 g/dL Hematocrit 40.9 36.1 37-47 % Mean Corpuscular Volume 88.5 90.0 80-100 fL Mean Corpuscular Hemoglobin 31.2 30.7 25-34 pg Mean Corpuscular Hemoglobin Concent 35.2 34.1 32-36 g/dl Platelet Count 384 347 130-400 K/uL Mean Platelet Volume 9.6 10.2 7.4-10.4 fL Neutrophils (%) (Auto) 72.8 58.4 % Lymphocytes (%) (Auto) 18.3 29.4 % Monocytes (%) (Auto) 6.4 6.3 % Eosinophils (%) (Auto) 1.7 5.1 % Basophils (%) (Auto) 0.3 0.4 % Neutrophils # (Auto) 7.41 4.81 1.4-6.5 K/uL Lymphocytes # (Auto) 1.86 2.42 1.2-3.4 K/uL Monocytes # (Auto) 0.65 0.52 0.11-0.59 K/uL Eosinophils # (Auto) 0.17 0.42 0-0.5 K/uL Basophils # (Auto) 0.03 0.03 0-0.2 K/uL RDW Standard Deviation 44.0 44.3 36.4-46.3 fL RDW Coefficient of Variation 13.6 13.4 11.5-14.5 % Immature Granulocyte % (Auto) 0.5 0.4 % Immature Granulocyte # (Auto) 0.05 0.03 0.00-0.02 K/uL Sodium Level 136 136 136-145 mmol/L Potassium Level 3.8 3.9 3.5-5.1 mmol/L Chloride Level 103 107 98-107 mmol/L Carbon Dioxide Level 25 24 21-32 mmol/L Anion Gap 7.0 5.0 3-11 mmol/L Blood Urea Nitrogen 14 10 7-18 mg/dl Creatinine 0.84 0.66 0.60-1.20 mg/dl Est Creatinine Clear Calc Drug Dose 99.9 127.2 ml/min Estimated GFR () 108.9 138.4 Estimated GFR (Non- 93.9 119.4 BUN/Creatinine Ratio 16.9 15.1 10-20 Random Glucose 132 131 70-99 mg/dl Calcium Level 9.7 8.6 8.5-10.1 mg/dl Total Bilirubin 2.9 1.3 0.2-1 mg/dl Direct Bilirubin 2.2 0-0.2 mg/dl Aspartate Amino Transf (AST/SGOT) 242 153 15-37 U/L Alanine Aminotransferase (ALT/SGPT) 354 305 12-78 U/L Alkaline Phosphatase 427 339 45-117 U/L Total Protein 9.2 7.8 6.4-8.2 gm/dl Albumin 3.9 2.9 3.4-5.0 gm/dl Lipase 317 73-393 U/L Urine Color DK YELLOW Urine Appearance TURBID CLEAR Urine pH 6.5 4.5-7.5 Urine Specific [place] 1.028 1.000-1.030 Urine Protein 1+ NEG Urine Glucose (UA) NEG NEG Urine Ketones TRACE NEG Urine Occult Blood NEG NEG Urine Nitrite POS NEG Urine Bilirubin 2+ NEG Urine Urobilinogen POS NEG Urine Leukocyte Esterase LARGE NEG Urine WBC (Auto) 0-5 /hpf Urine RBC (Auto) 0-4 /hpf Urine Hyaline Casts (Auto) 0-5 /lpf Urine Epithelial Cells (Auto) 0-5 /lpf Urine Bacteria (Auto) NEG Urine RBC 0-4 0-4 /hpf Urine WBC 10-30 0-5 /hpf Urine Epithelial Cells >30 0-5 /lpf Urine Crystals NONE PRSENT Urine Calcium Oxalate Crystals PRESENT NONE PRSENT Urine Bacteria 1+ NEG Urine Hyaline Casts 1-5 0-5 /lpf Urine Trichomonas PRESENT NONE PRSENT Urine Test NEG NEG Globulin 4.9 2.5-4.0 gm/dl Albumin/Globulin Ratio 0.6 0.9-2 Microbiology Results 07/09/17 Urine Culture, Received Pending Assessment & Plan 31 year-old female cholelithiasis, choledocholithiasis Patient seen and examined with Dr. Bustos. Pain improved from admission. No new concerns or complaints. ERCP scheduled- possibly today, but most likely on Wednesday. Patient scheduled for Lap Cheri with Dr. Lawrence on 07/12/2017. Gen Surg will continue to follow.
--- NOTE | 2017-07-10 14:29 | PROGRESS NOTE ---
DATE: 07/10/2017 HISTORY OF PRESENT ILLNESS: Ms. Saenz feels great today. She has had no further bouts of abdominal pain, nausea, vomiting. She has had no fever or diarrhea. She wants to eat and go home. She immediately stated when I got to the room with her mother present that she has young children at home and since she feels so well she just wants to go home. She has had no complaints overnight. She has been n.p.o. and she wishes to eat. PHYSICAL EXAMINATION: VITAL SIGNS: During this visit her most recent temperature is 37.3, blood pressure is 128/76, pulse is 86. SKIN: Anicteric. EYES: Show anicteric sclerae. MOUTH: Mouth clear of lesions. NECK: Supple. CHEST: Clear. HEART: Regular rate and rhythm. ABDOMEN: Soft with good bowel sounds. There is no organomegaly, masses, or rebound tenderness noted. EXTREMITIES: Warm with good distal pulses. No edema. NEUROLOGIC: She is grossly intact and alert and oriented x3. LABORATORY DATA: Show a white blood cell count of 8.2, stable hemoglobin of 12.3. Total bilirubin was 2.9 and now it is 1.3. Lipase is normal. Transaminases have improved as well. IMPRESSION AND PLAN: It appears that most likely the patient has passed the stone though it is not completely clear if the stone is ball-valving. I think it is reasonable to give her a low-fat light diet and see how she tolerates this and if she has any urgent need to attend to her children, she could certainly be discharged. I have instructed the patient with the mother present to return if she has any recurrence of pain or fever. She already is scheduled for laparoscopic cholecystectomy with Dr. Lawrence on Wednesday. I have discussed this with the hospitalist service as well. ANDREY
[2017-07-10 14:53] VITALS: BP 162/92; PULSE 92; TEMP 37.6; O2SAT 96
--- NOTE | 2017-07-10 15:01 | Progress Note ---
Medicine Progress Note Date & Time of Visit: Jul 10, 2017 at 14:44. Subjective Pt was seen and examined Sitting in chair with no distress Pt said that she feels fine She said that she does not have any pain She would like to eat something Pt said that she would like to go home today since she had young kid at home Very anxious to go home today She said that she had no pain since yesterday Pt is schedule for laparoscopic cholecystectomy surgery on Wednesday Denies any chest pain, palpitation, dizziness and SOB Objective Last 8 Hrs Date Time Temp Pulse Resp B/P (MAP) Pulse Ox O2 Delivery O2 Flow Rate FiO2 07/10/17 08:29 37.3 86 18 128/76 (93) 95 Room Air 07/10/17 07:40 97 Room Air Physical Exam: General- No acute distress Head- atraumatic Eyes- PERRL, EOMI ENT- oropharynx clear Neck- supple, no JVD Lungs- clear to auscultation Heart- regular rhythm Abdomen- normal bowel sounds, soft Extremities- no calf tenderness Neuro- alert, oriented x 3; PERRL Skin- warm & dry Laboratory Results: Last 24 Hours Test 07/10/17 05:16 White Blood Count 8.23 K/uL Red Blood Count 4.01 M/uL Hemoglobin 12.3 g/dL Hematocrit 36.1 % Mean Corpuscular Volume 90.0 fL Mean Corpuscular Hemoglobin 30.7 pg Mean Corpuscular Hemoglobin Concent 34.1 g/dl Platelet Count 347 K/uL Mean Platelet Volume 10.2 fL Neutrophils (%) (Auto) 58.4 % Lymphocytes (%) (Auto) 29.4 % Monocytes (%) (Auto) 6.3 % Eosinophils (%) (Auto) 5.1 % Basophils (%) (Auto) 0.4 % Neutrophils # (Auto) 4.81 K/uL Lymphocytes # (Auto) 2.42 K/uL Monocytes # (Auto) 0.52 K/uL Eosinophils # (Auto) 0.42 K/uL Basophils # (Auto) 0.03 K/uL RDW Standard Deviation 44.3 fL RDW Coefficient of Variation 13.4 % Immature Granulocyte % (Auto) 0.4 % Immature Granulocyte # (Auto) 0.03 K/uL Sodium Level 136 mmol/L Potassium Level 3.9 mmol/L Chloride Level 107 mmol/L Carbon Dioxide Level 24 mmol/L Anion Gap 5.0 mmol/L Blood Urea Nitrogen 10 mg/dl Creatinine 0.66 mg/dl Est Creatinine Clear Calc Drug Dose 127.2 ml/min Estimated GFR () 138.4 Estimated GFR (Non- 119.4 BUN/Creatinine Ratio 15.1 Random Glucose 131 mg/dl Calcium Level 8.6 mg/dl Total Bilirubin 1.3 mg/dl Aspartate Amino Transf (AST/SGOT) 153 U/L Alanine Aminotransferase (ALT/SGPT) 305 U/L Alkaline Phosphatase 339 U/L Total Protein 7.8 gm/dl Albumin 2.9 gm/dl Globulin 4.9 gm/dl Albumin/Globulin Ratio 0.6 Assessment & Plan RUQ abdominal pain secondary to choledocholithiasis. U/S reveals presence of cholelithiasis but no evidence of cholecystitis. Denies any pain/nausea/vomiting currently Schedule for laparoscopic cholecystectomy with Dr. Lawrence on Wednesday as an outpatient Will start on low fat diet Case discussed with gastro As per gastro recommended to start on low fat diet and if tolerates, pt can be discharged since pt has no pain and already schedule for surgery on Wednesday Pt will continue on Low fat diet on discharge Pt was advised if pain reoccurs to come back to the ER Elevated LFTs Due to choledocholithiasis. Liver enzymes trending down Continue monitor liver enzymes Avoid hepatoxity agents DVT prophylaxis-SCDs Full code Disposition possible discharge home if pt tolerates diet Current Inpatient Medications: Current Inpatient Medications Medications (Trade) Dose Ordered Sig/Mateo Route Start Time Stop Time Status Last Admin Dose Admin Ondansetron HCl (Zofran Inj) 4 mg Q6H PRN IV 07/09/17 13:45 08/08/17 13:44 Potassium Chloride/Dextrose/ Sod Cl 1,000 ml @ 100 mls/hr Q10H IV 07/09/17 15:00 08/08/17 14:59 07/10/17 10:25 100 MLS/HR Morphine Sulfate (MoRPHine SULFATE INJ) 4 mg Q4H PRN IV 07/09/17 13:45 07/23/17 13:44
[2017-07-10 15:40] VITALS: BP 147/103; PULSE 89
[2017-07-10 16:37] VITALS: BP 137/97
--- NOTE | 2017-07-10 17:13 | Discharge Instructions ---
Discharge Instructions Date of Service Jul 10, 2017. Admission Reason for Admission: Biliary Colic Discharge Discharge Diagnosis / Problem: RUQ abdominal pain, choledocholithiasis, Elevated liver enzymes Discharge Goals Goal(s): Decrease discomfort, Improve function, Improve disease control Activity Recommendations Activity Limitations: resume your previous activity (as tolerated) . Instructions / Follow-Up Instructions / Follow-Up Call to schedule a follow up appointment with your primary care provider within 1 week Follow up with your surgeon Dr. Lawrence on Wednesday for surgery Continue Low fat diet for now Check liver enzymes (Your physician will order it for you at your next follow up appointment) If pain reoccurs, please come back to the ER Current Hospital Diet Patient's current hospital diet: Low Fat Diet Discharge Diet Recommended Diet: Low Fat Diet Pending Studies Studies pending at discharge: no Medical Emergencies . Who to Call and When: Medical Emergencies: If at any time you feel your situation is an emergency, please call 911 immediately. . Non-Emergent Contact Non-Emergency issues call your: Primary Care Provider, Surgeon Call Non-Emergent contact if: your pain is worsening, your pain is concerning you . . "Provider Documentation" section prepared by Ilir Mancera. .
[2017-07-10 17:39] VITALS: BP 137/97; PULSE 89; TEMP 37.6; O2SAT 96
--- NOTE | 2017-07-12 07:56 | Discharge Summary ---
Discharge Summary Date of Service Jul 12, 2017. Discharge Summary Admission Date: Jul 09, 2017 at 13:40 Discharge Date: Jul 10, 2017 Discharge Disposition: Home Principal Diagnosis: RUQ abdominal pain Secondary Diagnoses/Problems: Choledocholithiasis Elevated liver enzymes Procedures: ULTRASOUND RIGHT UPPER QUADRANT ABDOMEN CLINICAL HISTORY: Right upper quadrant abdominal pain. COMPARISON STUDY: No priors. TECHNIQUE: Real-time, grayscale, and color flow sonography of the right upper quadrant of the abdomen was performed. Images are reviewed in the transverse and longitudinal planes. FINDINGS: Liver: The liver is normal in size and echotexture. There is no intrahepatic biliary ductal dilatation. The main portal vein is patent. Gallbladder: The gallbladder is contracted. Shadowing gallstones measure up to 1.1 cm. There is no gallbladder wall thickening or pericholecystic fluid. A sonographic Persaud's sign is reportedly absent. The common bile duct is dilated measuring up to 1.1 cm in diameter. A 9 mm shadowing calculus is identified within the common bile duct. Pancreas: Visualized portions of the pancreatic head and body are normal in appearance. The splenic vein is patent. Right kidney: Survey images of the right kidney demonstrate normal size and echotexture. There is no hydronephrosis. A 2.5 cm cyst is noted in the right upper pole. Ascites: None. IMPRESSION: 1. The gallbladder is contracted and contains shadowing gallstones. There is no sonographic evidence of acute cholecystitis. 2. There is dilatation of the common bile duct with evidence of choledocholithiasis. Follow-up with gastroenterology is recommended. 3. There is no intrahepatic biliary ductal dilatation identified. Electronically signed by: Manjit García M.D. 07/09/2017 12:41 PM Dictated Date/Time: 07/09/2017 12:37 PM Medication Reconciliation Continued Medications: Ranitidine Hcl (Zantac) 150 Mg Tab 150 MG PO BID Admission Information HPI (per Admitting provider): 31-year-old female presents emergency room with worsening right upper quadrant pain that was associated with vomiting, chills, and nausea in the last 24 hours. She reports a history of 2 weeks of abdominal pain that was in the right upper quadrant area. She was worked up as outpatient and ultimately seen by a general surgeon for this and had a planned cholecystectomy for this coming Wednesday (3 days from now). Yesterday she reports eating potato chips and subsequently having pain around lunchtime which resolved spontaneously. She then had spaghetti last night for dinner and developed the same right upper quadrant pain with vomiting within a half an hour. She was able to go to sleep but then woke up went to work, had a peanut butter sandwich with ice coffee and threw up within 30 minutes. This was when she came to the ER. She reports after throwing up she was able to drink water and keep that down. She reports a history of jaundice but no jaundice in the last 24 hours. She otherwise denies any urinary tract symptoms including no dysuria or urgency. She denies any fevers, chest pain, shortness of breath, diarrhea, change in bowel movements or blood per rectum. She denies any cough or recent cold symptoms. She describes the pain is across the top of her abdomen with majority of the pain in the right upper quadrant area. This pain provokes her to have some trouble breathing when it is at its worse in addition to some chest tightness which resolves with resolution of the pain. Physical Exam (per Admitting): General Appearance: no apparent distress, + obese Head: normocephalic, atraumatic Eyes: normal inspection, PERRL, sclerae normal ENT: hearing grossly normal, pharynx normal Neck: supple, no adenopathy, trachea midline Respiratory/Chest: lungs clear, normal breath sounds, no respiratory distress, no accessory muscle use Cardiovascular: regular rate, rhythm, no edema, no gallop, no JVD, no murmur , normal peripheral pulses Abdomen/GI: normal bowel sounds, soft, + tenderness (Right upper quadrant/ epigastric), + pertinent finding (No rebound, no CVA tenderness) Back: normal inspection, no CVA tenderness Extremities/Musculoskelatal: normal inspection, no pedal edema, normal range of motion Neurologic/Psych: ham clerk II-XII nml as tested, no motor/sensory deficits, alert , normal mood/affect, oriented x 3 Skin: normal color, warm/dry, no rash Hospital Course RUQ abdominal pain secondary to choledocholithiasis. U/S reveals presence of cholelithiasis but no evidence of cholecystitis. Denies any pain/nausea/vomiting currently Schedule for laparoscopic cholecystectomy with Dr. Lawrence on Wednesday as an outpatient Will start on low fat diet Case discussed with gastro As per gastro recommended to start on low fat diet and if tolerates, pt can be discharged since pt has no pain and already schedule for surgery on Wednesday Pt will continue on Low fat diet on discharge Pt was advised if pain reoccurs to come back to the ER Elevated LFTs Due to choledocholithiasis. Liver enzymes trending down Continue monitor liver enzymes Avoid hepatoxity agents DVT prophylaxis-SCDs Full code Disposition possible discharge home if pt tolerates diet Total time spent on discharge = 35 MINUTES This includes examination of the patient, discharge planning, medication reconciliation, and communication with other providers. Discharge Instructions Discharge Instructions Date of Service Jul 10, 2017. Admission Reason for Admission: Biliary Colic Discharge Discharge Diagnosis / Problem: RUQ abdominal pain, choledocholithiasis, Elevated liver enzymes Discharge Goals Goal(s): Decrease discomfort, Improve function, Improve disease control Activity Recommendations Activity Limitations: resume your previous activity (as tolerated) . Instructions / Follow-Up Instructions / Follow-Up Call to schedule a follow up appointment with your primary care provider within 1 week Follow up with your surgeon Dr. Lawrence on Wednesday for surgery Continue Low fat diet for now Check liver enzymes (Your physician will order it for you at your next follow up appointment) If pain reoccurs, please come back to the ER Current Hospital Diet Patient's current hospital diet: Low Fat Diet Discharge Diet Recommended Diet: Low Fat Diet Pending Studies Studies pending at discharge: no Medical Emergencies . Who to Call and When: Medical Emergencies: If at any time you feel your situation is an emergency, please call 911 immediately. . Non-Emergent Contact Non-Emergency issues call your: Primary Care Provider, Surgeon Call Non-Emergent contact if: your pain is worsening, your pain is concerning you . . "Provider Documentation" section prepared by Ilir Mancera. . Additional Copies To Ria Mehta
== END 2017-07-10 18:50 | disposition home or self-care (01) | DRG 446 ==
LOC: C.EDB 10:53 → C.MSN 13:40 → EDBEDREQ 13:57 → ENRESERV 13:58
PROVIDERS: ADMIT Hospitalist; ATTEND Internal Medicine
DX: K80.70 Calculus of gallbladder and bile duct without cholecystitis without obstruction (principal); Z79.899 Other long term (current) drug therapy; Z88.1 Allergy status to other antibiotic agents